=== PATIENT | female | born 1970 | race Caucasian/White ===

== ENCOUNTER 2023-02-09 09:17 | Emergency (ER) | payer MEDICAID ==
[~2023-02-09] VITALS: Ht 154.9 cm; Wt 72.0 kg
[2023-02-09 09:21] VITALS: BP 124/76; PULSE 95; RESP 16; TEMP 98.3; O2SAT 98
[2023-02-09] MEDS ORDERED: NAPR-56 PO (10:52)
[2023-02-09] MEDS ORDERED: TETanus/Pertussis (Acell)/Diphther VAC/PF (Tdap-Adult) 0.5ml syringe IMVAC ONE (10:55)
== END 2023-02-09 11:10 | disposition home or self-care (01) ==
LOC: ER 09:18
DX: S06.0X0A Concussion without loss of consciousness, initial encounter (principal); Z88.2 Allergy status to sulfonamides; Z88.8 Allergy status to other drugs, medicaments and biological substances; Z23 Encounter for immunization; W22.8XXA Striking against or struck by other objects, initial encounter; Y93.89 Activity, other specified; Y92.89 Other specified places as the place of occurrence of the external cause; Y99.8 Other external cause status
CPT/HCPCS: 90471; 90715; 99283